=== PATIENT | male | born 1960 | race Caucasian/White ===

== ENCOUNTER 2022-03-31 08:52 | Emergency (ER) | payer MEDICARE ==
[~2022-03-31] VITALS: Ht 180.3 cm; Wt 120.5 kg
[~2022-03-31 08:52] MED LIST: ALB0.5UD IH; CYCL-1 PO; FINA5TAB11 PO; FLUT1BLS4 INH; GUAI600T45 PO; LISI1TAB53 PO; MULT-1085 PO; NICO-687 TD; PRAV40TA3 PO; SERT-434 PO; TEST200V33 IM
[2022-03-31 09:13] LABS: BASOPHILS # (AUTO) 0.1 X10'3 (0-0.2); BASOPHILS % (AUTO) 1.2 % (0-1); EOSINOPHILS # (AUTO) 0.3 X10'3 (0-0.9); EOSINOPHILS % (AUTO) 3.6 % (0-6); HEMATOCRIT 48.8 % (42.0-52.0); LYMPHOCYTES # (AUTO) 1.7 X10'3 (1.1-4.8); MEAN CORPUSCULAR HEMOGLOBIN 25.7 PG (27.0-31.0); MEAN CORPUSCULAR HGB CONC 32.8 g/dL (33.0-36.5); MEAN CORPUSCULAR VOLUME 78.2 FL (78-98); MEAN PLATELET VOLUME 8.4 FL (7.4-10.4); MONOCYTES # (AUTO) 0.9 X10'3 (0-0.9); MONOCYTES % (AUTO) 10.2 % (2-12); NEUTROPHILS # (AUTO) 5.5 X10'3 (1.8-7.7); PLATELET COUNT 278 X10'3 (140-440); RED BLOOD COUNT 6.24 X10'6 (4.70-6.10); RED CELL DISTRIBUTION WIDTH 18.2 % (11.5-14.5); WHITE BLOOD COUNT 8.5 X10'3 (4.5-11.0)
[2022-03-31 09:24] LABS: ALANINE AMINOTRANSFERASE 79 U/L (12-78); ALBUMIN 3.8 G/DL (3.4-5.0); ALBUMIN/GLOBULIN RATIO 0.9 (1.1-1.5); ALKALINE PHOSPHATASE 59 IU/L (46-116); ANION GAP 7 (8-16); ASPARTATE AMINO TRANSFERASE 45 U/L (10-37); BILIRUBIN,TOTAL 0.3 MG/DL (0.1-1.0); BLOOD UREA NITROGEN 12 MG/DL (7-18); BUN/CREATININE RATIO 11.7 (5.4-32.0); CALCIUM 10.3 MG/DL (8.5-10.1); CHLORIDE 99 MMOL/L (99-107); CREATININE 1.03 MG/DL (0.60-1.10); GLUCOSE 178 MG/DL (70-104); POTASSIUM 3.6 MMOL/L (3.5-5.1); SODIUM 141 MMOL/L (135-145); TOTAL CARBON DIOXIDE 34.7 MMOL/L (24-32); eGFR 73 ML/MIN
[2022-03-31] MEDS ORDERED: iohexol 350MG/ML 100ml bottle IV ONE (09:32)
[2022-03-31] MEDS ORDERED: metoprolol tartrate 50mg tablet PO ONE (10:55)
[2022-03-31] MEDS ORDERED: LORazepam 2 mg/ml vial IV ONE (12:55)
[2022-03-31] MEDS ORDERED: ketorolac trometh. 30mg/ml inj. IV ONE (12:55)
[2022-03-31] MEDS ORDERED: normal saline 1000ML IV soln IVB ONE (12:55)
[2022-03-31] MEDS ORDERED: metoclopramide 5 mg/ml inj IV ONE (13:02)
[2022-03-31 13:40] VITALS: BP 182/104
== END 2022-03-31 14:02 | disposition home or self-care (01) ==
LOC: ER 08:52
DX: R06.09 Other forms of dyspnea (principal); J44.9 Chronic obstructive pulmonary disease, unspecified; I10 Essential (primary) hypertension; G43.909 Migraine, unspecified, not intractable, without status migrainosus; M79.604 Pain in right leg; Z87.891 Personal history of nicotine dependence
CPT/HCPCS: 36415; 71045; 71275; 80053; 83880; 84484; 85025; 93005; 93971; 96361; 96374; 96375; 99285; J1885; J2060; J2765; J3490; J7030; Q9967

== ENCOUNTER 2022-05-22 18:03 | Emergency (ER) | payer MEDICARE ==
[~2022-05-22] VITALS: Ht 180.3 cm; Wt 118.4 kg
[~2022-05-22 18:03] MED LIST changes: -LISI1TAB53 PO; -NICO-687 TD
[2022-05-22 19:16] LABS: ALBUMIN 3.8 G/DL (3.4-5.0); ALBUMIN/GLOBULIN RATIO 0.9 (1.1-1.5); ALKALINE PHOSPHATASE 79 IU/L (46-116); ANION GAP 10 (8-16); BILIRUBIN,TOTAL 0.3 MG/DL (0.1-1.0); BLOOD UREA NITROGEN 24 MG/DL (7-18); BUN/CREATININE RATIO 14.5 (5.4-32.0); CALCIUM 9.2 MG/DL (8.5-10.1); CHLORIDE 89 MMOL/L (99-107); CREATININE 1.66 MG/DL (0.60-1.10); LIPASE 225 U/L (73-393); SODIUM 127 MMOL/L (135-145); eGFR 42 ML/MIN
[2022-05-22 19:26] LABS: BASOPHILS # (AUTO) 0.1 X10'3 (0-0.2); BASOPHILS % (AUTO) 1.4 % (0-1); EOSINOPHILS # (AUTO) 0.3 X10'3 (0-0.9); EOSINOPHILS % (AUTO) 3.1 % (0-6); HEMATOCRIT 48.8 % (42.0-52.0); HEMOGLOBIN 16.2 g/dl (14.0-17.9); LYMPHOCYTES # (AUTO) 1.8 X10'3 (1.1-4.8); LYMPHOCYTES % (AUTO) 20.4 % (21-51); MEAN CORPUSCULAR HEMOGLOBIN 26.7 PG (27.0-31.0); MEAN CORPUSCULAR HGB CONC 33.2 g/dL (33.0-36.5); MEAN CORPUSCULAR VOLUME 80.4 FL (78-98); MEAN PLATELET VOLUME 9.1 FL (7.4-10.4); MONOCYTES # (AUTO) 0.8 X10'3 (0-0.9); MONOCYTES % (AUTO) 8.8 % (2-12); NEUTROPHILS # (AUTO) 5.9 X10'3 (1.8-7.7); NEUTROPHILS % (AUTO) 66.3 % (42-75); PLATELET COUNT 288 X10'3 (140-440); RED BLOOD COUNT 6.06 X10'6 (4.70-6.10)
[2022-05-22 19:28] LABS: ALANINE AMINOTRANSFERASE 71 U/L (12-78)
[2022-05-22 19:29] LABS: ASPARTATE AMINO TRANSFERASE 54 U/L (10-37); POTASSIUM 3.8 MMOL/L (3.5-5.1)
[2022-05-22 19:31] LABS: GLUCOSE 557 MG/DL (70-104)
[2022-05-22] MEDS ORDERED: normal saline 1000ML IV soln IVB ONE (19:45)
[2022-05-22] MEDS ORDERED: ketorolac trometh. 30mg/ml inj. IV ONE (20:05)
[2022-05-22] MEDS ORDERED: METF-900 PO (20:40)
[2022-05-22 21:22] VITALS: BP 149/91
[2022-05-22 22:22] LABS: CLARITY,URINE CLEAR (Clear); COLOR,URINE YELLOW (Yellow); GLUCOSE, URINE >=1000 mg/dl (Neg); KETONES,URINE TRACE mg/dl (Neg); LEUKOCYTE ESTERASE ,URINE NEGATIVE (Neg); NITRITES, URINE NEGATIVE (Neg); OCCULT BLOOD,URINE TRACE-INTACT (Neg); PROTEIN,URINE 100 mg/dl (Neg); UROBILINOGEN,URINE 0.2 E.U/dL (0.2-1.0)
[2022-05-22 22:39] LABS: UA COLLECTION TYPE CLN CATCH MIDSTREAM
[2022-05-22 22:43] LABS: BACTERIA,URINE NONE SEEN /HPF (Neg); MUCUS STRANDS NONE SEEN /LPF (Neg); SQUAMOUS EPITHELIAL CELL,UR FEW /LPF (FEW); WBC,URINE 0-4 /HPF (0-4)
== END 2022-05-22 22:16 | disposition home or self-care (01) ==
LOC: ER 18:04
DX: E11.65 Type 2 diabetes mellitus with hyperglycemia (principal); I10 Essential (primary) hypertension; G89.29 Other chronic pain; M54.9 Dorsalgia, unspecified; J45.909 Unspecified asthma, uncomplicated; Z79.899 Other long term (current) drug therapy; Z79.1 Long term (current) use of non-steroidal anti-inflammatories (NSAID)
CPT/HCPCS: 36415; 80053; 81001; 82948; 83690; 85025; 96361; 96374; 99283; J1885; J7030

== ENCOUNTER 2024-10-17 17:48 | Emergency (ER) | payer MEDICARE, OTHER ==
[~2024-10-17] VITALS: Ht 180.3 cm; Wt 102.8 kg
[2024-10-17 17:54] VITALS: BP 148/99; PULSE 100; RESP 19; O2SAT 97
[2024-10-17] MEDS: LORazepam 0.5 MG tablet PO ONE (19:07)
--- NOTE | 2024-10-17 19:07 | Physician Documentation ---
History of Present Illness ~ Chief Complaint: Anxiety Stated Complaint: PANIC ATTACK Time Seen by MD: 18:48 Primary Medical Doctor: none HPI This 64-year-old male with a history of COPD, anxiety and panic attacks presents with several days of increasing feeling of shortness of breath and anxiety, patient reports feelings are similar to previous panic attacks. Patient reports the shortness of breath as feels like I am going to stop breathing, patient does not report feeling as if it is difficult to breathe. Patient reports that is in typically begins experiencing panic attacks with poor sleep and has had sleep disturbance due to being on opiate pain medications for right hip pain, patient reports that he is no longer taking please opiate pain medications as of today. Patient reports that he does have Atarax prescribed at home though does not feel it works, patient reports that in the past Ativan has helped his symptoms. Patient reports no chest pain, nausea vomiting, or diaphoresis. Patient reports no other acute symptoms or concerns. Medication Reconciliation Allergies: Coded Allergies: No Known Allergies (Unverified , 05/22/22) Scheduled Cyclobenzaprine* (Cyclobenzaprine*), 1 TAB PO HS, (Reported) Finasteride (Finasteride), 1 TAB PO DAILY, (Reported) Fluticasone/Umeclidin/Vilanter (Trelegy Ellipta 100-62.5-25), 1 PUFFS INH DAILY, (Reported) Guaifenesin (Mucinex), 600 MG PO BID Hydroxyzine Hcl (Atarax), 1 TAB PO Q12H Multivitamin (Multi Vitamin Daily), 1 TAB PO DAILY, (Reported) Pravastatin Sodium (Pravastatin Sodium), 1 TAB PO DAILY, (Reported) Sertraline HCl (Sertraline HCl), 1 TAB PO DAILY, (Reported) Testosterone Cypionate (TESTOSTERONE CYPIONATE 200mg/ml 10ml vial), 0.5 ML IM EVERY TUESDAY, (Reported) Scheduled PRN Albuterol Sulfate Nebs* (Proventil Nebs*), 2.5 MG IH Q4H PRN for SOB or wheezing, (Reported) Past Medical History Past Medical History: *CARDIOVASCULAR*, Hypertension, Asthma, COPD, *ENDOCRINE*, Chronic Back Pain, *DERMATOLOGY* Past Surgical History: orthopedic surgeries Patient History: Patient reports no known family medical history. Alcohol Use: None Drug Use: none Lives with: Spouse Lives In: Home Review of Systems ROS Anxiety and shortness of breath as stated above in the HPI, otherwise all systems are reviewed and negative. Physical Exam Vital Signs: Temperature: 97.8, Source: Temporal, Heart Rate: 100, Respiratory Rate: 19, BP: 148/99, Pulse Oximetry: 97, Weight: 102.800 Oxygen Flow Rate: 0 Physical Exam VITALS: Reviewed and as above. GENERAL: Alert, nontoxic appearing, no apparent distress. RESPIRATORY: No increased work of breathing, no respiratory distress, speaking in full clear sentences, clear lung sounds in all bray CV: Regular rhythm no murmur PSYCH: Anxious appearing otherwise normal mood and affect, no agitation Progress Results/Orders Results/Orders Completed Orders - MIKE LEWIS RN SURGICAL Stat Ekg (10/17/24 18:57) Lorazepam Tablet (Ativan Tablet) (10/17/24 19:00) Lorazepam Tablet (Ativan Tablet) (10/17/24 19:50) Medications Received in ER Medications (Trade) Dose Ordered Sig/Pauline Route PRN Reason Start Time Stop Time Status Last Admin Dose Admin (Ativan tablet) 0.5 mg ONCE ONCE PO 10/17/24 19:00 10/17/24 19:01 DC 10/17/24 19:07 0.5 MG (Ativan tablet) 0.5 mg ONCE PRN PO for anxiety/agitation 10/17/24 19:50 10/17/24 21:06 DC 10/17/24 20:04 0.5 MG Vital Signs 10/17/24 10/17/24 17:54 21:01 Temp 97.8 97.8 Pulse 100 Resp 19 B/P (MAP) 148/99 Pulse Ox 97 O2 Flow Rate 0 EKG/XRAY/CT/US/VASC/MRI EKG : Additional Comment EKG at 7:06 p.m. interpreted by myself as sinus rhythm at a rate of 96, left axis deviation, no ST segment elevation or depression Medical Decision Making Findings This 64-year-old male with history of COPD, anxiety and panic attacks presented with a feeling of shortness a breath described as feel like I am going to stop breathing which is described as similar to previous episodes of panic attacks. An EKG was obtained which did not demonstrate evidence of dysrhythmia, ischemia, or infarction. It was reassuring patient did not describe the shortness of breath has difficulty breathing only as a worry of stopping breathing. Physical exam was reassuring as patient was otherwise well-appearing normal lung sounds and without any evidence of hypoxia or respiratory distress. Patient medicated for anxiety. Patient reports feeling much better after dose of Ativan. Patient is appropriate for outpatient follow up. Differential Dx:Considerations: Include: Anxiety, Conversion disorder, Encephaloathy, Homicidal, Panic disorder, Personality disorder, Substance abuse, Suicidal Differential Diagnosis DC, COPD exacerbation, respiratory distress Departure Time of Disposition: 20:56 Disposition: HOME / SELF CARE / HOMELESS Impression: Primary Impression: Anxiety Condition: Improved Discharge Instructions: Panic Attack Additional Instructions: Is reassuring you are feeling better. Please use the prescribed Atarax as needed for anxiety and panic attack symptoms, do not drive or operate heavy machinery while under the influence of this medication as it will cause you to be drowsy. Please follow up with your primary care provider or mental health provider for further management of your symptoms. Please follow up with your primary care provider in the next few days. Please return to the emergency department for any new or worsening concerning symptoms. Referrals: NO PRIMARY CARE PROVIDER (PCP) Prescriptions Hydroxyzine Hcl (Atarax) 25 Mg Tablet 1 TAB PO Q12H for anxiety for 30 Days, #60 TAB 0 Refills Prov: MIKE LEWIS 10/17/24 Education Educated: Patient Educated regarding: diagnosis, treatment, prognosis, need for follow up Signature Scribe Signature: No scribe Attestation: The note accurately reflects work and decisions made by me.AVNI Benjamin 10/18/24 02:35 MIKE LEWIS Oct 17, 2024 19:07
--- NOTE | 2024-10-17 19:08 | ELECTROCARDIOGRAPH REPORT ---
[facility] Test Date: 2024-10-17 Test Time: 19:06:08 Pat Name: ZAHEER SANTANA Department: EMERGENCY ROOM Room: Gender: M [facility] Tutor: : 1960 Requested By: MIKE LEWIS Order Number: [id number] Reading MD: Dr. Augie Hughes Measurements Intervals [place] Rate: 96 P: 72 [place]: 205 QRS: -57 QRSD: 88 T: 81 QT: 325 QTc: 411 Interpretive Statements Sinus rhythm LAD, consider left anterior fascicular block Probable anteroseptal infarct, old Electronically Signed On 10-18-2024 6:34:[address] Augie Hughes Please click the below link to view image of tracing.
[2024-10-17] MEDS: LORazepam 0.5 MG tablet PO PRN (20:04)
[2024-10-17] MEDS ORDERED: HYDR-3686 PO (20:56)
[2024-10-17 21:01] VITALS: TEMP 97.8
== END 2024-10-17 21:06 | disposition home or self-care (01) ==
LOC: ER 17:48
DX: F41.0 Panic disorder [episodic paroxysmal anxiety] (principal); I10 Essential (primary) hypertension; J44.9 Chronic obstructive pulmonary disease, unspecified
CPT/HCPCS: 93005; 99283

== ENCOUNTER 2024-11-26 14:29 | Emergency (ER) | payer OTHER, MEDICARE ==
[~2024-11-26] VITALS: Ht 177.8 cm; Wt 95.0 kg
[~2024-11-26 14:29] MED LIST changes: +HYDR-3686 PO; +PRAV40TA17 PO; -PRAV40TA3 PO
[2024-11-26 14:30] VITALS: BP 156/99; PULSE 100; RESP 16; O2SAT 98
--- NOTE | 2024-11-26 15:22 | Physician Documentation ---
History of Present Illness ~ Chief Complaint: Anxiety Stated Complaint: ANXIETY Time Seen by MD: 15:22 Primary Medical Doctor: none HPI 64-year-old male was brought to the emergency department per ambulance. He notes a history of anxiety attacks which caused him to have a sensation that he is unable to breathe. He notes a long history of this, and is on sertraline. He has occasionally used lorazepam, but is currently out. Medication Reconciliation Allergies: Coded Allergies: No Known Allergies (Unverified , 11/26/24) Scheduled Cyclobenzaprine* (Cyclobenzaprine*), 1 TAB PO HS, (Reported) Finasteride (Finasteride), 1 TAB PO DAILY, (Reported) Fluticasone/Umeclidin/Vilanter (Trelegy Ellipta 100-62.5-25), 1 PUFFS INH DAILY, (Reported) Guaifenesin (Mucinex), 600 MG PO BID Hydroxyzine HCl (Hydroxyzine HCl), 1 TAB PO Q8H Hydroxyzine Hcl (Atarax), 1 TAB PO Q12H Multivitamin (Multi Vitamin Daily), 1 TAB PO DAILY, (Reported) Pravastatin Sodium (Pravastatin Sodium), 1 TAB PO DAILY, (Reported) Sertraline HCl (Sertraline HCl), 1 TAB PO DAILY, (Reported) Testosterone Cypionate (TESTOSTERONE CYPIONATE 200mg/ml 10ml vial), 0.5 ML IM EVERY TUESDAY, (Reported) Scheduled PRN Albuterol Sulfate Nebs* (Proventil Nebs*), 2.5 MG IH Q4H PRN for SOB or wheezing, (Reported) Lorazepam (Ativan), 1 TAB PO Q12H PRN PRN for anxiety Past Medical History Past Medical History: *CARDIOVASCULAR*, Hypertension, Asthma, COPD, *ENDOCRINE*, Chronic Back Pain, *DERMATOLOGY* Past Surgical History: orthopedic surgeries Patient History: Patient reports no known family medical history. Alcohol Use: None Drug Use: none Lives with: Spouse Lives In: Home Review of Systems ROS As stated above in the HPI, otherwise all systems are reviewed and negative. Physical Exam Vital Signs: Temperature: 97.5, Source: Temporal, Heart Rate: 100, Respiratory Rate: 16, BP: 156/99, Pulse Oximetry: 98, Weight: 95.000 Oxygen Flow Rate: 0 Physical Exam General: Alert, anxious appearing. HEENT: PERRL, EOMI, no injection, moist mucous membranes. Neck: Full range of motion. Respiratory: Lungs clear, no respiratory distress. Chest: No accessory muscle use. Cardiovascular: Regular rate and rhythm, no murmurs. Gastrointestinal: Soft, nontender, nondistended. Bowels sounds present. Extremities: Normal range of motion, no deformity. Neurologic: Oriented x4. Psychiatric: Good eye contact, paces around room during exam. Skin: Normal color, warm and dry. No edema, no ecchymosis. Progress Progress Note 1700: On reevaluation, patient reports feeling improved. Results/Orders Results/Orders Completed Orders - IVETTE ESPINOSA NP Lorazepam Tablet (Ativan Tablet) (11/26/24 16:15) Medications Received in ER Medications (Trade) Dose Ordered Sig/Pauline Route PRN Reason Start Time Stop Time Status Last Admin Dose Admin (Ativan tablet) 1 mg ONCE ONCE PO 11/26/24 16:15 11/26/24 16:16 DC 11/26/24 16:27 1 MG Vital Signs 11/26/24 14:30 Temp 97.5 Pulse 100 Resp 16 B/P (MAP) 156/99 Pulse Ox 98 O2 Flow Rate 0 Medical Decision Making Differential Dx:Considerations: Include: Alcohol abuse, Anxiety, Bipolar disorder, Conversion disorder, Depression, Encephaloathy, Homicidal, Panic disorder, Personality disorder, Schizophrenia, Substance abuse, Suicidal Departure Time of Disposition: 17:03 Disposition: 01 HOME / SELF CARE / HOMELESS Impression: Primary Impression: Anxiety attack Condition: Stable Discharge Instructions: Panic Attack Additional Instructions: You may benefit from a medication change. Talk to your primary care or psychiatrist. Use the prescribed medications as needed for panic. Start with the hydroxyzine and then try the lorazepam if this is ineffective. Return if worse. Referrals: NO PRIMARY CARE PROVIDER (PCP) Prescriptions Lorazepam (Ativan) 0.5 Mg Tablet 1 TAB PO Q12H PRN PRN for anxiety for 7 Days, #14 TAB 0 Refills Prov: IVETTE ESPINOSA NP 11/26/24 Hydroxyzine HCl (Hydroxyzine HCl) 50 Mg Tablet 1 TAB PO Q8H for anxiety for 10 Days, #30 TAB 0 Refills Prov: IVETTE ESPINOSA NP 11/26/24 Education Educated: Patient Educated regarding: diagnosis, treatment, prognosis, need for follow up Signature Scribe Signature: x Attestation: The note accurately reflects work and decisions made by me.Ivette Shrestha NP 11/26/24 16:24 IVETTE ESPINOSA NP Nov 26, 2024 15:22
[2024-11-26] MEDS ORDERED: HYDR50TA65 PO (17:05)
[2024-11-26] MEDS ORDERED: LORA-268 PO (17:05)
[2024-11-26 17:15] VITALS: TEMP 97.5
== END 2024-11-26 17:17 | disposition home or self-care (01) ==
LOC: ER 14:30
DX: F41.9 Anxiety disorder, unspecified (principal); I10 Essential (primary) hypertension; J44.9 Chronic obstructive pulmonary disease, unspecified; Z79.899 Other long term (current) drug therapy
CPT/HCPCS: 99283

== ENCOUNTER 2024-12-21 06:10 | Emergency (ER) | payer OTHER ==
[~2024-12-21] VITALS: Ht 180.3 cm; Wt 97.5 kg
[~2024-12-21 06:10] MED LIST changes: +HYDR50TA65 PO; +LORA-268 PO
[2024-12-21 07:06] LABS: MEAN PLATELET VOLUME 8.3 FL (7.4-10.4); RED CELL DISTRIBUTION WIDTH 18.8 % (11.5-14.5)
--- NOTE | 2024-12-21 07:10 | RADIOLOGY REPORT ---
CHEST RADIOGRAPH Indication: CP Technique: Single frontal view of the chest was obtained Comparison: None FINDINGS: Lines and Tubes: None Lungs: No focal consolidation. Pleura: No effusion. No pneumothorax. Cardiomediastinal contours: Unremarkable Bones: No acute osseous abnormality. IMPRESSION: 1. No acute cardiopulmonary disease.
[2024-12-21 07:20] LABS: CREATININE 1.27 MG/DL (0.60-1.10); PRO BRAIN NATRIURETIC PEPTIDE 204 PG/ML (0-125); TOTAL CARBON DIOXIDE 27.4 MMOL/L (24-32); eCRCL 63 ML/MIN; eGFR 57 ML/MIN
--- NOTE | 2024-12-21 08:07 | Physician Documentation ---
History of Present Illness General Chief Complaint: Anxiety Stated Complaint: HEART RACING/PANIC ATTACK Time Seen by MD: 07:51 Primary Medical Doctor: none Mode of Arrival: POV History of Present Illness Initial Comments The patient is a 64-year-old male who presents with a panic attack. He does have a history of panic attacks. He reports that these attacks are often brought on by opiates. He has been prescribed Suboxone recently and took some yesterday morning which he feels started this panic attack. It improved somewhat yesterday but recurred this morning. He has no medication to take for panic attacks. He denies chest pain. He denies shortness of breath though he feels as though he is going to stop breathing any minute. No focal neurological symptoms. Medication Reconciliation Allergies: Coded Allergies: No Known Allergies (Unverified , 11/26/24) Scheduled Cyclobenzaprine* (Cyclobenzaprine*), 1 TAB PO HS, (Reported) Finasteride (Finasteride), 1 TAB PO DAILY, (Reported) Fluticasone/Umeclidin/Vilanter (Trelegy Ellipta 100-62.5-25), 1 PUFFS INH DAILY, (Reported) Guaifenesin (Mucinex), 600 MG PO BID Hydroxyzine HCl (Hydroxyzine HCl), 1 TAB PO Q8H Hydroxyzine Hcl (Atarax), 1 TAB PO Q12H Multivitamin (Multi Vitamin Daily), 1 TAB PO DAILY, (Reported) Pravastatin Sodium (Pravastatin Sodium), 1 TAB PO DAILY, (Reported) Sertraline HCl (Sertraline HCl), 1 TAB PO DAILY, (Reported) Testosterone Cypionate (TESTOSTERONE CYPIONATE 200mg/ml 10ml vial), 0.5 ML IM EVERY TUESDAY, (Reported) Scheduled PRN Albuterol Sulfate Nebs* (Proventil Nebs*), 2.5 MG IH Q4H PRN for SOB or wheezing, (Reported) Lorazepam (Ativan), 1 TAB PO Q12H PRN PRN for anxiety Past Medical History Past Medical History: *CARDIOVASCULAR*, Hypertension, Asthma, COPD, *ENDOCRINE*, Chronic Back Pain, *DERMATOLOGY* Past Surgical History: orthopedic surgeries Alcohol Use: None Drug Use: none Lives with: Spouse Lives In: Home Review of Systems ROS Constitutional: Denies chills, fatigue, fever, weight gain or weight loss. HEENT: Denies hearing loss, sinus pressure or visual changes. Respiratory: Denies cough, shortness of breath or wheezing. Cardiovascular: Denies chest pain, pain while walking (claudication), edema or palpitations. Gastrointestinal: Denies abdominal pain, blood in stool, constipation, diarrhea, heartburn, loss of appetite, nausea or vomiting. Genitourinary: Denies painful urination (dysuria), excessive amount of urine (polyuria) or urinary frequency. Metabolic/Endocrine: Denies cold intolerance, heat intolerance, excessive thirst (polydipsia) or excessive hunger (polyphagia). Neurological: Denies dizziness, extremity numbness, extremity weakness, headach es, seizures or tremors. Psychiatric: Feels panicky Integumentary: Denies breast discharge, breast lump, hives, mole change(s), rash or skin lesion. Musculoskeletal: Denies back pain, joint pain, joint swelling or neck pain. Hematologic: Denies easily bleeding, easily bruises, lymphedema or issues with blood clots. Immunologic: Denies food allergies or seasonal allergies. Physical Exam Physical Exam Vital Signs: Temperature: 97.7, Source: Oral, Heart Rate: 97, Respiratory Rate: 18, BP: 135/90, Pulse Oximetry: 94, Weight: 97.550 Physical Exam Physical Exam Vitals and nursing note reviewed. Constitutional: General: Patient is awake, alert, oriented x 4 in no acute distress and well appearing. Speech is clear and lucid. Appearance: Normal appearance. Patient is not ill-appearing, toxic-appearing or diaphoretic. HENT: Head: Normocephalic and atraumatic. Mouth/Throat: Mouth: Mucous membranes are moist. Pharynx: Oropharynx is clear. Eyes: General: No scleral icterus. Extraocular Movements: Extraocular movements intact. Pupils: Pupils are equal, round, and reactive to light. Neck: Supple, no Kernig or Brudzinski sign. Cardiovascular: Rate and Rhythm: Normal rate and regular rhythm. Heart sounds: No murmur heard. Pulmonary: Effort: No respiratory distress. Breath sounds: No wheezing, rhonchi or rales. Abdominal: General: There is no distension. Palpations: There is no fluid wave, hepatomegaly or mass. Tenderness: There is no abdominal tenderness. There is no guarding. Musculoskeletal: General: No swelling or deformity. Skin: Coloration: Skin is not jaundiced. Findings: No erythema or rash. Neurological: Mental Status: Patient is alert. Progress Results/Orders Results/Orders Orders - VANE AWAN MD Chest,Single View (12/21/24 06:28) Monitor (12/21/24 06:28) Saline Lock (12/21/24 06:28) Oxygen (12/21/24 06:28) Completed Orders - VANE AWAN MD Chest,Single View (12/21/24 06:28) Cbc/Diff (12/21/24 06:28) BMP (12/21/24 06:28) PBNP (12/21/24 06:28) Electrocardiogram (12/21/24:28) Hs Troponin I W Calculations (12/21/24 06:28) Hs Troponin I W Calculations (12/21/24 08:28) Lorazepam Tablet (Ativan Tablet) (12/21/24 08:05) Lorazepam Tablet (Ativan Tablet) (12/21/24 09:40) Medications Received in ER Medications (Trade) Dose Ordered Sig/Pauline Route PRN Reason Start Time Stop Time Status Last Admin Dose Admin (Ativan tablet) 1 mg ONCE ONCE PO 12/21/24 08:05 12/21/24 08:06 DC 12/21/24 08:08 1 MG (Ativan tablet) 1 mg ONCE ONCE PO 12/21/24 09:40 12/21/24 09:41 DC 12/21/24 09:43 1 MG Vital Signs 12/21/24 12/21/24 12/21/24 12/21/24 06:11 06:51 06:54 08:36 Temp 97.7 97.7 97.7 Pulse 58 97 94 Resp 22 18 18 14 B/P (MAP) 129/69 135/90 (105) 113/72 (86) Pulse Ox 98 94 94 O2 Flow Rate 0 12/21/24 09:25 Temp 97.7 Pulse 101 Resp 17 B/P (MAP) 115/70 (85) Pulse Ox 96 O2 Flow Rate 0 Laboratory Tests Test 12/21/24 06:37 12/21/24 08:15 White Blood Count 12.7 H Red Blood Count 5.88 Hemoglobin 15.5 Hematocrit 46.6 Mean Corpuscular Volume 79.2 Mean Corpuscular Hemoglobin 26.3 L Mean Corpuscular Hemoglobin Concent 33.2 Red Cell Distribution Width 18.8 H Platelet Count 377 Mean Platelet Volume 8.3 Neutrophils (%) (Auto) 72.1 Lymphocytes (%) (Auto) 17.8 L Monocytes (%) (Auto) 7.8 Eosinophils (%) (Auto) 1.5 Basophils (%) (Auto) 0.8 Neutrophils # (Auto) 9.2 H Lymphocytes # (Auto) 2.3 Monocytes # (Auto) 1.0 H Eosinophils # (Auto) 0.2 Basophils # (Auto) 0.1 CBC Comment Platelet Estimate Normal Hypogranular Platelets Red Blood Cell Morphology Perf Hypochromasia 1+ Basophilic Stippling Anisocytosis 2+ Microcytosis 1+ Sodium Level 138 Potassium Level 3.2 L Chloride Level 97 L Carbon Dioxide Level 27.4 Anion Gap 14 Blood Urea Nitrogen 21 H Creatinine 1.27 H Estimated GFR/1.73 m2 57 BUN/Creatinine Ratio 16.5 Glucose Level 149 H Calcium Level 10.1 Troponin I High Sensitivity 11 11 Pro-B-Type Natriuretic Peptide 204 H Albumin 4.2 Chemistry Comments Troponin I High Sens Percent Delta 0 Troponin I Hi Sens Absolute Change 0 Medical Decision Making Findings EKG medically necessary in the evaluation of anxiety and interpreted by me at the time of patient evaluation. Rhythm is sinus rhythm with a rate of 81, ventricular trigeminy, left anterior fascicular block QRS 92 probable a nteroseptal infarct, old Impression: Abnormal EKG. I am going to treat this patient with a dose of oral lorazepam. This patient has been on and off opioids for significant time. He did take Suboxone yesterday but did not take it today. I feel that his symptoms are due at least in part to opioid withdrawal and I have explained this to him. I recommend that he take his Suboxone. Departure Disposition: 01 HOME / SELF CARE / HOMELESS Impression: Primary Impression: Opioid withdrawal Additional Impression: Anxiety attack Condition: Stable Additional Instructions: It is important to see your doctor or primary care provider. Emergency care may be incomplete without proper follow-up. Symptoms sometimes change or new symptoms might arise after you leave the emergency department. It is important that you call your doctor if you become worse in any way, or return to the emergency department. You are strongly urged to follow-up with your physician to assure complete and thorough care. Please call your doctor's office today, and informed them that you were seen in the emergency department, and that you need to be seen immediately for close follow-up. If you do not have a primary care doctor we encourage you to proactively seek a local physician for close follow-up. Consider local clinics, [facility], or local [facility]. Prior to discharge we spoke at length concerning symptoms that would merit reevaluation, but please return to the emergency department for any symptoms that are concerning to you, and we will be happy to continue your evaluation and treatment. Please note you can always return to the emergency department if you are having difficulty coordinating close follow-up. If medications were prescribed, you should fill them at your local pharmacy immediately and take only as prescribed. Bring your new medications to your doctors follow-up visit to discuss any changes that would be necessary. Please check [email or web address] for any results you did not receive in the Emergency Department: often we are unable to get all your tests back before you leave, and these tests need to be reviewed by your PCP and yourself. You can also call Medical Records if you are unable to access the internet to see [email or web address]. Return to the emergency department immediately for worsening chest pain, difficulty breathing, sweating, or other concerning emergent symptoms. Referrals: NO PRIMARY CARE PROVIDER (PCP) Education Educated: Patient Educated regarding: diagnosis, treatment, prognosis, need for follow up Signature Scribe Signature: . Attestation: VANE JAMIL MD Dec 21, 2024 08:07
--- NOTE | 2024-12-21 08:14 | ELECTROCARDIOGRAPH REPORT ---
[facility] Test Date: 2024-12-21 Test Time: 06:17:17 Pat Name: ZAHEER SANTANA Department: EMERGENCY ROOM Room: Gender: M [employer]: : 1960 Requested By: VANE AWAN Order Number: [id number] Reading MD: Measurements Intervals [place] Rate: 81 P: 79 [place]: 173 QRS: -62 QRSD: 92 T: 67 QT: 347 QTc: 403 Interpretive Statements Sinus tachycardia Ventricular trigeminy LAE, consider biatrial enlargement LAD, consider left anterior fascicular block Probable anteroseptal infarct, old Please click the below link to view image of tracing.
[2024-12-21 08:31] LABS: PLATELET ESTIMATE NORMAL
[2024-12-21 09:25] VITALS: TEMP 97.7
[2024-12-21 10:23] VITALS: BP 132/82; PULSE 70; RESP 18; O2SAT 98
== END 2024-12-21 10:25 | disposition home or self-care (01) ==
LOC: ER 06:10
DX: F11.23 Opioid dependence with withdrawal (principal); F41.0 Panic disorder [episodic paroxysmal anxiety]; I10 Essential (primary) hypertension; J44.9 Chronic obstructive pulmonary disease, unspecified; Z79.899 Other long term (current) drug therapy
CPT/HCPCS: 36415; 71045; 80048; 83880; 84484; 85008; 85025; 93005; 99285